=== PATIENT | female | born 1970 | race Caucasian/White ===

== ENCOUNTER 2018-05-07 13:59 | Inpatient (IN) | payer MEDICAID ==
[~2018-05-07] VITALS: Ht 157.5 cm; Wt 77.8 kg
[~2018-05-07 13:59] MED LIST: CEPH500C; SULF-151; [UNRECOGNIZED DRUG - CODE]; [UNRECOGNIZED DRUG - CODE]
--- NOTE | 2018-05-07 16:51 | ERD ---
ER Documentation Chief Complaint Chief Complaint Left lower back pain since yesterday; noted blood in urine HPI The patient is a 48-year-old female, presenting to the ER because of left low back pain, radiating to her left flank, bloody urine that began last night, denies similar symptoms previously, denies fever, chills, neck pain, chest pain, dyspnea, complains of frequent urination and constipation. She does not smoke nor drink Past medical history: Diabetes mellitus, history of kidney stones Past surgical history: Cholecystectomy ROS All systems reviewed and are negative except as per history of present illness. Medications Home Meds Reported Medications Metformin Hcl* (Metformin Hcl*) 1,000 Mg Tablet, 1000 MG PO WITH BREAKFAST DINNE, #60 TAB 05/07/18 Discontinued Reported Medications Bacitracin* (Bacitracin* Opht) 3.5 Gm Oint 06/15/09 Oxycodone Hcl/Acetaminophen (Roxicet 5-325 Tablet) 1 Tab Tablet 06/15/09 Sulfamethoxazole/Trimethoprim (Sulfamethoxazole Tmp Ds Tab) 1 Tab Tablet 06/15/09 Cephalexin* (Cephalexin*) 500 Mg Capsule 06/15/09 [None] No Conflict Check 06/12/09 Allergies Allergies: Coded Allergies: No Known Allergies (Verified Allergy, Mild, 05/07/18) PMhx/Soc History of Surgery: No Hx Neurological Disorder: No Hx Respiratory Disorders: No Hx Cardiac Disorders: No Hx Miscellaneous Medical Probl: No Hx Alcohol Use: No Hx Substance Use: No Hx Tobacco Use: No Physical Exam Vitals Vital Signs Date Temp Pulse Resp B/P (MAP) Pulse Ox O2 O2 Flow FiO2 Time Delivery Rate 05/07/18 98.4 85 20 139/77 96 Room Air 17:45 (97) 05/07/18 99.0 91 20 164/89 96 14:04 (114) Physical Exam Const: No acute distress. Head: Atraumatic. Eyes: Normal Conjunctiva. ENT: Normal External Ears, Nose and Mouth. Neck: Full range of motion. No meningismus. Resp: Clear to auscultation bilaterally. Cardio: Regular rate and rhythm. Abd: Soft, non distended, normal bowel sounds, mild left lower back and left flank/LUQ tenderness, no rigidity/rebound/ RLQ/RUQ tenderness Skin: No petechiae or rashes. Back: No midline or flank tenderness. Ext: No cyanosis, or edema. Neur: Awake and alert. No focal deficit Psych: Normal Mood and Affect. Result Diagram: 05/07/18 1719 05/07/18 1719 Results 24 hrs Laboratory Tests Test 05/07/18 17:18 05/07/18 17:19 05/07/18 17:26 POC Beta HCG, Qualitative NEGATIVE White Blood Count 11.8 10^3/ul Red Blood Count 4.82 10^6/ul Hemoglobin 13.5 g/dl Hematocrit 40.6 % Mean Corpuscular Volume 84.2 fl Mean Corpuscular Hemoglobin 28.0 pg Mean Corpuscular 33.3 g/dl Hemoglobin Concent Red Cell Distribution Width 13.0 % Platelet Count 362 10^3/UL Mean Platelet Volume 8.5 fl Immature Granulocytes % 0.300 % Neutrophils % 61.7 % Lymphocytes % 24.7 % Monocytes % 8.8 % Eosinophils % 3.9 % Basophils % 0.6 % Nucleated Red Blood Cells % 0.0 /100WBC Immature Granulocytes # 0.030 10^3/ul Neutrophils # 7.3 10^3/ul Lymphocytes # 2.9 10^3/ul Monocytes # 1.0 10^3/ul Eosinophils # 0.5 10^3/ul Basophils # 0.1 10^3/ul Nucleated Red Blood Cells # 0.0 10^3/ul Sodium Level 136 mmol/L Potassium Level 4.2 mmol/L Chloride Level 98 mmol/L Carbon Dioxide Level 27 mmol/L Anion Gap 11 Blood Urea Nitrogen 19 mg/dl Creatinine 0.87 mg/dl Est Glomerular Filtrat Rate mL/min > 60 mL/min Glucose Level 86 mg/dl Calcium Level 10.2 mg/dl Total Bilirubin 0.3 mg/dl Direct Bilirubin 0.00 mg/dl Indirect Bilirubin 0.3 mg/dl Aspartate Amino Transf (AST/SGOT) 58 IU/L Alanine 72 IU/L Aminotransferase (ALT/SGPT) Alkaline Phosphatase 191 IU/L Total Protein 8.3 g/dl Albumin 4.1 g/dl Globulin 4.20 g/dl Albumin/Globulin Ratio 0.97 Lipase 1254 U/L Bedside Urine pH (LAB) 6.5 Bedside Urine Protein (LAB) Trace Bedside Urine Glucose (UA) Negative Bedside Urine Ketones (LAB) Trace Bedside Urine Blood 3+ Bedside Urine Nitrite (LAB) Negative Bedside Urine Leukocyte Esterase Trace (L Current Medications Medications Dose Sig/Kareem Start Time Status Last (Trade) Ordered Route PRN Stop Time Admin Dose Reason Admin Ketorolac 30 mg ONCE STAT 05/07/18 DC 05/07/18 Tromethamine IV 16:58 17:43 (Toradol) 05/07/18 16:59 Procedures/MDM [place] [id number] Radiology Main Line: [phone] DIAGNOSTIC IMAGING REPORT Patient: JOCE ALVAREZ : 1970 Age: 48 Sex: F MR #: [id number] DOS: 05/07/18 1652 Ordering MD: RASHEEDA HARRY MD Location: E/R Room/Bed: PROCEDURE: CT Abdomen and Pelvis without contrast. CLINICAL INDICATION: Abdominal pain. TECHNIQUE: CT scan of the abdomen and pelvis was performed on a multi-detector high-resolution CT scanner. The patient was scanned without contrast administration. Coronal and sagittal reformatted images were obtained from the axial source images. Images were reviewed on a high-resolution PACS workstation. The total exam CTDI equals 15 mGy and the total exam DLP equals 910 mGy-cm. DICOM images are available. 3-D reconstructions were not performed. One or more of the following dose reduction techniques were utilized: 1.) Automated exposure control 2.) Adjustment of the mA +/- kV according to patient's size 3.) Use of iterative reconstruction technique. COMPARISON: None. FINDINGS: CT abdomen: Heart (where visible): Unremarkable. Lung bases: No evidence of pneumonia, mass, pleural effusion. Liver: Normal attenuation. No visible focal mass. Biliary ductal system: No evidence of significant dilatation. Gallbladder: Surgically absent. Pancreas: Unremarkable. Stomach: No identifiable focal mass or gross wall thickening. Spleen: No gross splenomegaly. Abdominal colon: Normal in caliber and course. Abdominal small bowel: Normal in caliber, course, and mucosal pattern. Adrenal glands: No visible masses. Right Kidney: Normal in size and contour without focal mass or collecting system dilatation. No visible calcifications. Left kidney: Slight collecting system fullness. Slight marginal blurring. No visible calcifications. Abdominal aorta: Normal caliber. Lymph nodes: No significantly enlarged nodes. CT pelvis: Pelvic colon: Normal in caliber and course. Scattered diverticula. No evidence of inflammatory change. Pelvic small bowel: Normal in caliber and course. Appendix: Identified. No evidence of inflammation. Urinary bladder: Nearly empty. 3 mm calculus in the left posterior bladder, possibly at the orifice of the left ureter.. Reproductive structures: Unremarkable. Bony structures included in the scan: No clinically significant abnormalities. IMPRESSION: 1. 3 mm calculus in the left posterior bladder, possibly at the orifice of the left ureter with partial obstruction of the distal left ureter. Left pyelon ephritis should be considered in the differential. 2. Surgical absence of the gallbladder. 3. Sigmoid diverticulosis without evidence of diverticulitis. RPTAT:AAJJ Physician Lenore Date Time Electronically viewed and signed by Physician Lenore on 05/07/2018 18:10 GW/ CC: RASHEEDA HARRY MD [phone] Consultation: The on-call urologist Dr. Andrews was notified via [facility] MAKING DECISION: The patient is a 48-year-old female, presenting with ac billie left ureterolithiasis, acute pancreatitis. She was treated with Toradol 30 IV for pain with good response The differential diagnoses considered include but are not limited to cholelithiasis, cholecystitis, choledocholithiasis, cholangitis, pancreatitis, hepatitis, gastritis, peptic ulcer disease, gastric ulcer, appendicitis, cystitis, diverticulitis, partial small bowel obstruction. Departure Diagnosis: Primary Impression: Ureterolithiasis Additional Impression: Pancreatitis Condition: Stable Comments I discussed the findings with the patient. I discussed the patient with the hospitalist at 7:15 pm who was made aware of the lab, the treatment, the patien t condition. The patient is admitted to [facility] Disclaimer: Inadvertent spelling and grammatical errors are likely due to EHR/dictation software use and do not reflect on the overall quality of patient care. Also, please note that the electronic time recorded on this note does not necessarily reflect the actual time of the patient encounter. RASHEEDA HARRY MD May 07, 2018 16:51
[2018-05-07] MEDS ORDERED: KETOROLAC 30 MG INJ IV STA (16:58)
[2018-05-07] MEDS ORDERED: METF100010 PO (18:10)
[2018-05-07] MEDS ORDERED: HYDROmorphONE 0.5 MG/0.5 ML SYG IV STA (19:34)
[2018-05-07] MEDS ORDERED: GLIP10TA14 PO (20:44)
[2018-05-07] MEDS ORDERED: LISI-313 PO (20:45)
[2018-05-07] MEDS ORDERED: CHOL100062 PO (20:45)
[2018-05-07] MEDS ORDERED: ASPI81TA50 PO (20:45)
[2018-05-07] MEDS ORDERED: CETI10TA19 PO (20:46)
--- NOTE | 2018-05-07 23:59 | HP ---
Date/Time of Note Date/Time of Note DATE: 05/07/18 TIME: 23:59 Assessment/Plan VTE Prophylaxis Pharmacological prophylaxis: heparin Lines/Catheters IV Catheter Type (from Nrsg): Saline Lock Assessment/Plan Assessment/Plan 1. Left flank pain, likely secondary to a ureterolithiasis and pyelonephritis -IV fluid, IV antibiotic -Flomax -Follow-up culture results -Urology consult as needed 2. Left ureteral calculus with partial obstruction -See #1 3. Elevated lipase, possibly from gallstone pancreatitis -CT abdomen/pelvis shows that patient status post cholecystectomy -Abdominal ultrasound followed by MRCP -GI consult as needed Result Diagram: 05/07/18 1719 05/07/18 1719 Results 24hrs Laboratory Tests Test 05/07/18 17:18 05/07/18 17:19 05/07/18 17:26 POC Beta HCG, Qualitative NEGATIVE White Blood Count 11.8 H Red Blood Count 4.82 Hemoglobin 13.5 Hematocrit 40.6 Mean Corpuscular Volume 84.2 Mean Corpuscular Hemoglobin 28.0 L Mean Corpuscular Hemoglobin Concent 33.3 Red Cell Distribution Width 13.0 Platelet Count 362 Mean Platelet Volume 8.5 Immature Granulocytes % 0.300 Neutrophils % 61.7 Lymphocytes % 24.7 Monocytes % 8.8 Eosinophils % 3.9 Basophils % 0.6 Nucleated Red Blood Cells % 0.0 Immature Granulocytes # 0.030 Neutrophils # 7.3 Lymphocytes # 2.9 Monocytes # 1.0 H Eosinophils # 0.5 Basophils # 0.1 Nucleated Red Blood Cells # 0.0 Sodium Level 136 Potassium Level 4.2 Chloride Level 98 Carbon Dioxide Level 27 Anion Gap 11 Blood Urea Nitrogen 19 Creatinine 0.87 Est Glomerular Filtrat Rate mL/min > 60 Glucose Level 86 Calcium Level 10.2 Total Bilirubin 0.3 Direct Bilirubin 0.00 Indirect Bilirubin 0.3 Aspartate Amino Transf (AST/SGOT) 58 H Alanine Aminotransferase (ALT/SGPT) 72 H Alkaline Phosphatase 191 H Total Protein 8.3 H Albumin 4.1 Globulin 4.20 H Albumin/Globulin Ratio 0.97 Lipase 1254 H Bedside Urine pH (LAB) 6.5 Bedside Urine Protein (LAB) Trace H Bedside Urine Glucose (UA) Negative Bedside Urine Ketones (LAB) Trace H Bedside Urine Blood 3+ H Bedside Urine Nitrite (LAB) Negative Bedside Urine Leukocyte Esterase (L Trace H HPI/ROS Admit Date/Time Admit Date/Time Hx of Present Illness This is a 48-year-old female who presents the ER complaining of left flank pain x 1 day. Also reported nausea. Denied fever/chills, chest pain or shortness of breath. In ER, vitals were stable except initial BP was 164/89. WBC almost 12,000, AST 58, ALT 72, alk phos 192, lipase 450. CT abdomen/pelvis shows the followin. 3 mm calculus in the left posterior bladder, possibly at the orifice of the left ureter with partial obstruction of the distal left ureter. Left pyelonephritis should be considered in the differential. 2. Surgical absence of the gallbladder. 3. Sigmoid diverticulosis without evidence of diverticulitis. . PMH/Family/Social Past Medical History Past Surgical History Past Surgical Hx: other (see hpi) Family History Significant Family History: no pertinent family hx Social History Alcohol Use: other Smoking Status: Unknown if ever smoked Drug Use: other Exam Constitutional: other (no acute distress) Eyes: PERRL ENMT: nl external ears & nose Neck: supple Respiratory: normal air movement Cardiovascular: nl pulses Gastrointestinal: soft Extremities: normal pulses Coded Allergies: No Known Allergies (Verified Allergy, Mild, 05/07/18) Social History Smoking Status: Never smoker Exam/Review of Systems Vital Signs Vitals Vital Signs Date Temp Pulse Resp B/P (MAP) Pulse Ox O2 O2 Flow FiO2 Time Delivery Rate 05/07/18 98.4 89 20 120/72 97 Room Air 23:23 (88) 97 MELLISA GAGE MD May 07, 2018 23:59
[2018-05-08 00:01] VITALS: BP 114/57; PULSE 75; RESP 18
[2018-05-08] MEDS ORDERED: POTASSIUM CHLORIDE (SR) 20 MEQ TAB PO ONE (00:29)
[2018-05-08] MEDS ORDERED: TAMSULOSIN (SR) 0.4 MG CAP PO ONE (00:30)
[2018-05-08] MEDS ORDERED: ALBUTEROL/IPRATROPIUM (NEB) 3 ML AMP HHN PRN (00:30)
[2018-05-08] MEDS ORDERED: CEFTRIAXONE 1 GM/50 ML (PMX) 50 ML IVPB ONE (00:30)
[2018-05-08] MEDS ORDERED: HYDROCODONE/APAP (5/325) TAB PO PRN (00:30)
[2018-05-08] MEDS ORDERED: NACL 0.9% 3 ML SYG IV SCH (00:30)
[2018-05-08] MEDS ORDERED: ACETAMINOPHEN 325 MG TAB PO PRN (00:30)
[2018-05-08 00:34] VITALS: Ht 157.5 cm; Wt 77.8 kg
[2018-05-08] MEDS: ONDANSETRON 4 MG INJ IV PRN ×2 (00:58→17:36)
[2018-05-08] MEDS ORDERED: GLUCAGON 1 MG INJ IM PRN (01:00)
[2018-05-08] MEDS ORDERED: GLUCOSE GEL 15 GRAM TUBE PO PRN ×2 (01:00)
[2018-05-08] MEDS ORDERED: DEXTROSE 50% 50 ML SYRINGE IV PRN ×2 (01:00)
[2018-05-08] MEDS ORDERED: GLUCOSE GEL 15 GRAM TUBE BUCCAL PRN (01:00)
[2018-05-08] MEDS: SOD CHLORIDE 0.9% 1,000 ML IV SCH ×3 (01:15→20:45)
[2018-05-08] MEDS: ACCU-CHEK XX SCH (02:23)
[2018-05-08 07:52] VITALS: BP 97/56; PULSE 78; RESP 18
[2018-05-08] MEDS: INSULIN ASPART [NOVOLOG] 3 ML PEN SC SCH ×4 (08:00→20:49)
--- NOTE | 2018-05-08 08:51 | CONS ---
Assessment/Plan Assessment/Plan Hospital Course (Demo Recall) 48-year-old female to the emergency room with left flank pain associated with nausea and vomiting. She underwent a CT scan of the abdomen and pelvis and that showed a 3 mm stone at the left ureterovesical junction. Patient had pain late last night and also was nauseated. 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 The stone is about 3 mm and its at the ureterovesical junction she should be able to pass it on her own. Plan: Strain the urine, give her pain medications, KUB, continue the antibiotic and tamsulosin. Consultation Date/Type/Reason Admit Date/Time May 07, 2018 Date of Consultation: May 08, 2018 Type of Consult Urology Reason for Consultation Distal left ureteral stone Requesting Provider: MELLISA GAGE MD Date/Time of Note DATE: 05/08/18 TIME: 08:44 Hx of Present Illness 48-year-old female to the emergency room with left flank pain associated with nausea and vomiting. She underwent a CT scan of the abdomen and pelvis and that showed a 3 mm stone at the left ureterovesical junction. Constitutional: no complaints Eyes: no complaints ENT: no complaints Respiratory: no complaints; No shortness of breath Cardiovascular: no complaints Gastrointestinal: nausea, vomiting (On admission) Genitourinary: flank pain (Left side); No dysuria Musculoskeletal: no complaints Skin: no complaints Neurologic: no complaints Endocrine: no complaints Psychological: no complaints Past Medical History Medical History: diabetes, hypertension Home Meds Reported Medications Cetirizine Hcl* (Cetirizine Hcl*) 10 Mg Tablet, 10 MG PO DAILY, #30 TAB 05/07/18 Aspirin (Aspir-Low) 81 Mg Tablet.dr, 81 MG PO DAILY 05/07/18 Cholecalciferol* (Vitamin D3*) 1,000 Unit Tablet, 1000 UNIT PO DAILY, TAB 05/07/18 Lisinopril* (Lisinopril*) 5 Mg Tablet, 5 MG PO DAILY, #30 TAB 05/07/18 Glipizide* (Glipizide*) 10 Mg Tablet, 10 MG PO AC BREAKFAST DINNER, TAB 05/07/18 Metformin Hcl* (Metformin Hcl*) 1,000 Mg Tablet, 1000 MG PO WITH BREAKFAST DINNE, #60 TAB 05/07/18 Discontinued Reported Medications Bacitracin* (Bacitracin* Opht) 3.5 Gm Oint 06/15/09 Oxycodone Hcl/Acetaminophen (Roxicet 5-325 Tablet) 1 Tab Tablet 06/15/09 Sulfamethoxazole/Trimethoprim (Sulfamethoxazole Tmp Ds Tab) 1 Tab Tablet 06/15/09 Cephalexin* (Cephalexin*) 500 Mg Capsule 06/15/09 [None] No Conflict Check 06/12/09 Medications Current Medications Sodium Chloride 1,000 ml @ 100 mls/hr Q10H IV Last administered on 05/08/18at 01:15; Admin Dose 100 MLS/HR; Start 05/08/18 at 00:18 IV Flush (NS 3 ml) 3 ml PER PROTOCOL IV ; Start 05/08/18 at 00:30 Ondansetron HCl (Zofran Inj) 4 mg Q6H PRN IV NAUSEA/VOMITING Last administered on 05/08/18at 00:58; Admin Dose 4 MG; Start 05/08/18 at 00:30 Acetaminophen (Tylenol Tab) 650 mg Q6H PRN PO .PAIN 1-3 OR TEMP; Start 05/08/18 at 00:30 Acetaminophen/ Hydrocodone Bitart ([place] (5/325)) 1 tab Q6H PRN PO .MOD PAIN 4- 6; Start 05/08/18 at 00:30 Acetaminophen/ Hydrocodone Bitart ([place] (5/325)) 2 tab Q6H PRN PO .SEVERE PAIN 7-10; Start 05/08/18 at 00:30 Heparin Sodium (Porcine) (Heparin (5000 Units/1ml)) 5,000 unit Q12 SC ; Start 05/08/18 at 09:00 Albuterol/ Ipratropium (Duoneb) 3 ml Q2H RESP THERAPY PRN HHN SHORTNESS OF BREATH; Start 05/08/18 at 00:30 Diagnostic Test (Pha) (Accu-Chek) 1 ea 02 XX Last administered on 05/08/18at 02:23; Admin Dose 1 EA; Start 05/08/18 at 02:00 Insulin Aspart (Novolog Insulin Pen) NOVOLOG *MILD* ALGORITHM WITH MEALS BEDTIME SC ; Start 05/08/18 at 08:00 Aspirin (Halfprin) 81 mg DAILY PO ; Start 05/08/18 at 09:00 Lisinopril (Zestril) 5 mg DAILY PO ; Start 05/08/18 at 09:00 Ceftriaxone Sodium 50 ml @ 100 mls/hr DAILY IVPB ; Start 05/08/18 at 09:00 Miscellaneous Information 1 ea NOTE XX ; Start 05/08/18 at 01:00 Glucose (Glutose) 15 gm Q15M PRN PO DECREASED GLUCOSE; Start 05/08/18 at 01:00 Glucose (Glutose) 22.5 gm Q15M PRN PO DECREASED GLUCOSE; Start 05/08/18 at 01:00 Dextrose (D50w Syringe) 25 ml Q15M PRN IV DECREASED GLUCOSE; Start 05/08/18 at 01:00 Dextrose (D50w Syringe) 50 ml Q15M PRN IV DECREASED GLUCOSE; Start 05/08/18 at 01:00 Glucagon (Glucagen) 1 mg Q15M PRN IM DECREASED GLUCOSE; Start 05/08/18 at 01:00 Glucose (Glutose) 15 gm Q15M PRN BUCCAL DECREASED GLUCOSE; Start 05/08/18 at 01:00 Allergies: Coded Allergies: No Known Allergies (Verified Allergy, Mild, 05/07/18) Past Surgical History Past Surgical Hx: cholecystectomy Social History Alcohol Use: none Smoking Status: Never smoker Other Social History 4 para 4, 4 normal deliveries Exam/Review of Systems Exam Vitals Vital Signs Date Temp Pulse Resp B/P (MAP) Pulse Ox O2 O2 Flow FiO2 Time Delivery Rate 05/08/18 98.0 78 18 97/56 (70) 99 Room Air 07:52 Intake and Output 05/07/18 05/07/18 05/08/18 1515:00 23:00 07:00 IntakeIntake Total 900 ml OutputOutput Total 400 ml BalanceBalance 500 ml Constitutional: alert, oriented Psych: no complaints Head: normocephalic Eyes: nl conjunctiva ENMT: nl external ears & nose Neck: supple, non-tender Respiratory: normal air movement; No wheezing Cardiovascular: No jugular venous distention (JVD) Gastrointestinal: soft Genitourinary - Female: CVA tenderness (Left side) Musculoskeletal: nl extremities to inspection Extremities: No calf tenderness Neurological: nl mental status Skin: nl turgor Lymph: nl lymph nodes Results Result Diagram: 05/08/18 0432 05/08/18 0432 Results 24hrs Laboratory Tests Test 05/07/18 17:18 05/07/18 17:19 05/07/18 17:26 05/08/18 02:22 POC Beta HCG, NEGATIVE Qualitative White Blood Count 11.8 H Red Blood Count 4.82 Hemoglobin 13.5 Hematocrit 40.6 Mean Corpuscular 84.2 Volume Mean Corpuscular 28.0 L Hemoglobin Mean Corpuscular 33.3 Hemoglobin Concent Red Cell 13.0 Distribution Width Platelet Count 362 Mean Platelet Volume 8.5 Immature 0.300 Granulocytes % Neutrophils % 61.7 Lymphocytes % 24.7 Monocytes % 8.8 Eosinophils % 3.9 Basophils % 0.6 Nucleated Red Blood 0.0 Cells % Immature 0.030 Granulocytes # Neutrophils # 7.3 Lymphocytes # 2.9 Monocytes # 1.0 H Eosinophils # 0.5 Basophils # 0.1 Nucleated Red Blood 0.0 Cells # Sodium Level 136 Potassium Level 4.2 Chloride Level 98 Carbon Dioxide Level 27 Anion Gap 11 Blood Urea Nitrogen 19 Creatinine 0.87 Est Glomerular > 60 Filtrat Rate mL/min Glucose Level 86 Calcium Level 10.2 Total Bilirubin 0.3 Direct Bilirubin 0.00 Indirect Bilirubin 0.3 Aspartate Amino 58 H Transf (AST/SGOT) Alanine 72 H Aminotransferase (AL T/SGPT) Alkaline Phosphatase 191 H Total Protein 8.3 H Albumin 4.1 Globulin 4.20 H Albumin/Globulin 0.97 Ratio Lipase 1254 H Bedside Urine pH 6.5 (LAB) Bedside Urine Trace H Protein (LAB) Bedside Urine Negative Glucose (UA) Bedside Urine Trace H Ketones (LAB) Bedside Urine Blood 3+ H Bedside Urine Negative Nitrite (LAB) Bedside Urine Trace H Leukocyte Esterase (L Bedside Glucose 172 Test 05/08/18 04:32 White Blood Count 10.1 Red Blood Count 4.63 Hemoglobin 13.1 Hematocrit 38.9 Mean Corpuscular 84.0 Volume Mean Corpuscular 28.3 L Hemoglobin Mean Corpuscular 33.7 Hemoglobin Concent Red Cell 12.8 Distribution Width Platelet Count 364 Mean Platelet Volume 9.0 Immature 0.400 Granulocytes % Neutrophils % 69.8 Lymphocytes % 22.5 Monocytes % 5.6 Eosinophils % 1.1 Basophils % 0.6 Nucleated Red Blood 0.0 Cells % Immature 0.040 H Granulocytes # Neutrophils # 7.1 Lymphocytes # 2.3 Monocytes # 0.6 Eosinophils # 0.1 Basophils # 0.1 Nucleated Red Blood 0.0 Cells # Sodium Level 135 Potassium Level 4.7 Chloride Level 99 Carbon Dioxide Level 25 Anion Gap 11 Blood Urea Nitrogen 21 H Creatinine 0.84 Est Glomerular > 60 Filtrat Rate mL/min Glucose Level 164 Hemoglobin A1c 9.4 H Calcium Level 9.6 Magnesium Level 1.8 Total Bilirubin 0.4 Direct Bilirubin 0.00 Indirect Bilirubin 0.4 Aspartate Amino 46 Transf (AST/SGOT) Alanine 65 Aminotransferase (AL T/SGPT) Alkaline Phosphatase 171 H Total Protein 7.5 Albumin 3.8 Globulin 3.70 H Albumin/Globulin 1.[address] scan of the abdomen and pelvis: 1. 3 mm calculus in the left posterior bladder, possibly at the orifice of the left ureter with partial obstruction of the distal left ureter. Left pyelonephritis should be considered in the differential. 2. Surgical absence of the gallbladder. 3. Sigmoid diverticulosis without evidence of diverticulitis. Medications Medication Current Medications Sodium Chloride 1,000 ml @ 100 mls/hr Q10H IV Last administered on 05/08/18at 01:15; Admin Dose 100 MLS/HR; Start 05/08/18 at 00:18 IV Flush (NS 3 ml) 3 ml PER PROTOCOL IV ; Start 05/08/18 at 00:30 Ondansetron HCl (Zofran Inj) 4 mg Q6H PRN IV NAUSEA/VOMITING Last administered on 05/08/18at 00:58; Admin Dose 4 MG; Start 05/08/18 at 00:30 Acetaminophen (Tylenol Tab) 650 mg Q6H PRN PO .PAIN 1-3 OR TEMP; Start 05/08/18 at 00:30 Acetaminophen/ Hydrocodone Bitart ([place] (5/325)) 1 tab Q6H PRN PO .MOD PAIN 4- 6; Start 05/08/18 at 00:30 Acetaminophen/ Hydrocodone Bitart ([place] (5/325)) 2 tab Q6H PRN PO .SEVERE PAIN 7-10; Start 05/08/18 at 00:30 Heparin Sodium (Porcine) (Heparin (5000 Units/1ml)) 5,000 unit Q12 SC ; Start 05/08/18 at 09:00 Albuterol/ Ipratropium (Duoneb) 3 ml Q2H RESP THERAPY PRN HHN SHORTNESS OF BREATH; Start 05/08/18 at 00:30 Diagnostic Test (Pha) (Accu-Chek) 1 ea 02 XX Last administered on 05/08/18at 02:23; Admin Dose 1 EA; Start 05/08/18 at 02:00 Insulin Aspart (Novolog Insulin Pen) NOVOLOG *MILD* ALGORITHM WITH MEALS BEDTIME SC ; Start 05/08/18 at 08:00 Aspirin (Halfprin) 81 mg DAILY PO ; Start 05/08/18 at 09:00 Lisinopril (Zestril) 5 mg DAILY PO ; Start 05/08/18 at 09:00 Ceftriaxone Sodium 50 ml @ 100 mls/hr DAILY IVPB ; Start 05/08/18 at 09:00 Miscellaneous Information 1 ea NOTE XX ; Start 05/08/18 at 01:00 Glucose (Glutose) 15 gm Q15M PRN PO DECREASED GLUCOSE; Start 05/08/18 at 01:00 Glucose (Glutose) 22.5 gm Q15M PRN PO DECREASED GLUCOSE; Start 05/08/18 at 01:00 Dextrose (D50w Syringe) 25 ml Q15M PRN IV DECREASED GLUCOSE; Start 05/08/18 at 01:00 Dextrose (D50w Syringe) 50 ml Q15M PRN IV DECREASED GLUCOSE; Start 05/08/18 at 01:00 Glucagon (Glucagen) 1 mg Q15M PRN IM DECREASED GLUCOSE; Start 05/08/18 at 01:00 Glucose (Glutose) 15 gm Q15M PRN BUCCAL DECREASED GLUCOSE; Start 05/08/18 at 01:00 JAVIER ROMERO MD May 08, 2018 08:51
[2018-05-08] MEDS: CEFTRIAXONE 1 GM/50 ML (PMX) 50 ML IVPB SCH (08:54)
[2018-05-08] MEDS: ASPIRIN (EC) 81 MG TAB PO SCH (08:54)
[2018-05-08] MEDS: HEPARIN 5,000 UNIT/1 ML VIAL SC SCH ×2 (08:55→20:51)
[2018-05-08] MEDS: LISINOPRIL 5 MG TAB PO SCH (08:55)
[2018-05-08] MEDS: TAMSULOSIN (SR) 0.4 MG CAP PO SCH ×2 (09:52→20:47)
[2018-05-08] MEDS: HYDROCODONE/APAP (5/325) TAB PO PRN ×2 (12:44→17:37)
--- NOTE | 2018-05-08 13:56 | PN ---
Date/Time of Note Date/Time of Note DATE: 05/08/18 TIME: 13:52 Assessment/Plan VTE Prophylaxis Risk score (from Nsg)>0 risk: 1 SCD applied (from Nsg): Yes Pharmacological prophylaxis: heparin Lines/Catheters IV Catheter Type (from Nrsg): Peripheral IV Urinary Cath still in place: No Assessment/Plan Assessment/Plan 1. Left ureteral calculus, on IVF/flomax and pain control, strain the urine 2. Elevated lipase, likely due to ureteral stone, unlikely pancreatitis 3. DVT prophylaxis: heparin Result Diagram: 05/08/18 0432 05/08/18 0432 Results 24hrs Laboratory Tests Test 05/07/18 17:18 05/07/18 17:19 05/07/18 17:26 05/08/18 02:22 POC Beta HCG, NEGATIVE Qualitative White Blood Count 11.8 H Red Blood Count 4.82 Hemoglobin 13.5 Hematocrit 40.6 Mean Corpuscular 84.2 Volume Mean Corpuscular 28.0 L Hemoglobin Mean Corpuscular 33.3 Hemoglobin Concent Red Cell 13.0 Distribution Width Platelet Count 362 Mean Platelet Volume 8.5 Immature 0.300 Granulocytes % Neutrophils % 61.7 Lymphocytes % 24.7 Monocytes % 8.8 Eosinophils % 3.9 Basophils % 0.6 Nucleated Red Blood 0.0 Cells % Immature 0.030 Granulocytes # Neutrophils # 7.3 Lymphocytes # 2.9 Monocytes # 1.0 H Eosinophils # 0.5 Basophils # 0.1 Nucleated Red Blood 0.0 Cells # Sodium Level 136 Potassium Level 4.2 Chloride Level 98 Carbon Dioxide Level 27 Anion Gap 11 Blood Urea Nitrogen 19 Creatinine 0.87 Est Glomerular > 60 Filtrat Rate mL/min Glucose Level 86 Calcium Level 10.2 Total Bilirubin 0.3 Direct Bilirubin 0.00 Indirect Bilirubin 0.3 Aspartate Amino 58 H Transf (AST/SGOT) Alanine 72 H Aminotransferase (AL T/SGPT) Alkaline Phosphatase 191 H Total Protein 8.3 H Albumin 4.1 Globulin 4.20 H Albumin/Globulin 0.97 Ratio Lipase 1254 H Bedside Urine pH 6.5 (LAB) Bedside Urine Trace H Protein (LAB) Bedside Urine Negative Glucose (UA) Bedside Urine Trace H Ketones (LAB) Bedside Urine Blood 3+ H Bedside Urine Negative Nitrite (LAB) Bedside Urine Trace H Leukocyte Esterase (L Bedside Glucose 172 Test 05/08/18 04:32 05/08/18 08:52 05/08/18 12:46 White Blood Count 10.1 Red Blood Count 4.63 Hemoglobin 13.1 Hematocrit 38.9 Mean Corpuscular 84.0 Volume Mean Corpuscular 28.3 L Hemoglobin Mean Corpuscular 33.7 Hemoglobin Concent Red Cell 12.8 Distribution Width Platelet Count 364 Mean Platelet Volume 9.0 Immature 0.400 Granulocytes % Neutrophils % 69.8 Lymphocytes % 22.5 Monocytes % 5.6 Eosinophils % 1.1 Basophils % 0.6 Nucleated Red Blood 0.0 Cells % Immature 0.040 H Granulocytes # Neutrophils # 7.1 Lymphocytes # 2.3 Monocytes # 0.6 Eosinophils # 0.1 Basophils # 0.1 Nucleated Red Blood 0.0 Cells # Sodium Level 135 Potassium Level 4.7 Chloride Level 99 Carbon Dioxide Level 25 Anion Gap 11 Blood Urea Nitrogen 21 H Creatinine 0.84 Est Glomerular > 60 Filtrat Rate mL/min Glucose Level 164 Hemoglobin A1c 9.4 H Calcium Level 9.6 Magnesium Level 1.8 Total Bilirubin 0.4 Direct Bilirubin 0.00 Indirect Bilirubin 0.4 Aspartate Amino 46 Transf (AST/SGOT) Alanine 65 Aminotransferase (AL T/SGPT) Alkaline Phosphatase 171 H Total Protein 7.5 Albumin 3.8 Globulin 3.70 H Albumin/Globulin 1.02 Ratio Bedside Glucose 110 106 Subjective 24 Hr Interval Summary Free Text/Dictation left flank pain with some nausea Exam/Review of Systems Exam Vitals Vital Signs Date Temp Pulse Resp B/P (MAP) Pulse Ox O2 O2 Flow FiO2 Time Delivery Rate 05/08/18 98.0 78 18 97/56 (70) 99 Room Air 07:52 Intake and Output 05/07/18 05/07/18 05/08/18 1515:00 23:00 07:00 IntakeIntake Total 900 ml OutputOutput Total 400 ml BalanceBalance 500 ml Constitutional: alert, oriented, well developed, obese Psych: no complaints, nl mood/affect Head: normocephalic, atraumatic Eyes: nl conjunctiva, EOMI, nl lids ENMT: nl external ears & nose, nl lips & teeth, nl nasal mucosa & septum Neck: supple, non-tender Respiratory: clear to auscultation, normal air movement; No congested cough, No crackles/rales, No diminished breath sounds, No intercostal retraction, No labored breathing, No respirations, No tactile fremitus, No wheezing, No other Cardiovascular: regular rate and rhythm, nl pulses; No bruits, No diastolic murmur, No edema, No gallop, No irregular rhythm, No jugular venous distention (JVD), No murmurs/extra sounds, No rub, No systolic murmur, No S3, No S4, No other Gastrointestinal: soft, nl liver, spleen, non-tender; No ascites, No bowel sounds, No distended, No firm, No hepatomegaly, No mass, No rebound or guarding, No splenomegaly, No surgical scars, No tender, No other Musculoskeletal: nl extremities to inspection Extremities: normal pulses; No calf tenderness, No cyanosis, No clubbing, No edema, No pitting pedal edema, No palpable cord, No tenderness, No other 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, nl mental status, nl speech, nl strength Results Results 24hrs Laboratory Tests Test 05/07/18 17:18 05/07/18 17:19 05/07/18 17:26 05/08/18 02:22 POC Beta HCG, NEGATIVE Qualitative White Blood Count 11.8 H Red Blood Count 4.82 Hemoglobin 13.5 Hematocrit 40.6 Mean Corpuscular 84.2 Volume Mean Corpuscular 28.0 L Hemoglobin Mean Corpuscular 33.3 Hemoglobin Concent Red Cell 13.0 Distribution Width Platelet Count 362 Mean Platelet Volume 8.5 Immature 0.300 Granulocytes % Neutrophils % 61.7 Lymphocytes % 24.7 Monocytes % 8.8 Eosinophils % 3.9 Basophils % 0.6 Nucleated Red Blood 0.0 Cells % Immature 0.030 Granulocytes # Neutrophils # 7.3 Lymphocytes # 2.9 Monocytes # 1.0 H Eosinophils # 0.5 Basophils # 0.1 Nucleated Red Blood 0.0 Cells # Sodium Level 136 Potassium Level 4.2 Chloride Level 98 Carbon Dioxide Level 27 Anion Gap 11 Blood Urea Nitrogen 19 Creatinine 0.87 Est Glomerular > 60 Filtrat Rate mL/min Glucose Level 86 Calcium Level 10.2 Total Bilirubin 0.3 Direct Bilirubin 0.00 Indirect Bilirubin 0.3 Aspartate Amino 58 H Transf (AST/SGOT) Alanine 72 H Aminotransferase (AL T/SGPT) Alkaline Phosphatase 191 H Total Protein 8.3 H Albumin 4.1 Globulin 4.20 H Albumin/Globulin 0.97 Ratio Lipase 1254 H Bedside Urine pH 6.5 (LAB) Bedside Urine Trace H Protein (LAB) Bedside Urine Negative Glucose (UA) Bedside Urine Trace H Ketones (LAB) Bedside Urine Blood 3+ H Bedside Urine Negative Nitrite (LAB) Bedside Urine Trace H Leukocyte Esterase (L Bedside Glucose 172 Test 05/08/18 04:32 05/08/18 08:52 05/08/18 12:46 White Blood Count 10.1 Red Blood Count 4.63 Hemoglobin 13.1 Hematocrit 38.9 Mean Corpuscular 84.0 Volume Mean Corpuscular 28.3 L Hemoglobin Mean Corpuscular 33.7 Hemoglobin Concent Red Cell 12.8 Distribution Width Platelet Count 364 Mean Platelet Volume 9.0 Immature 0.400 Granulocytes % Neutrophils % 69.8 Lymphocytes % 22.5 Monocytes % 5.6 Eosinophils % 1.1 Basophils % 0.6 Nucleated Red Blood 0.0 Cells % Immature 0.040 H Granulocytes # Neutrophils # 7.1 Lymphocytes # 2.3 Monocytes # 0.6 Eosinophils # 0.1 Basophils # 0.1 Nucleated Red Blood 0.0 Cells # Sodium Level 135 Potassium Level 4.7 Chloride Level 99 Carbon Dioxide Level 25 Anion Gap 11 Blood Urea Nitrogen 21 H Creatinine 0.84 Est Glomerular > 60 Filtrat Rate mL/min Glucose Level 164 Hemoglobin A1c 9.4 H Calcium Level 9.6 Magnesium Level 1.8 Total Bilirubin 0.4 Direct Bilirubin 0.00 Indirect Bilirubin 0.4 Aspartate Amino 46 Transf (AST/SGOT) Alanine 65 Aminotransferase (AL T/SGPT) Alkaline Phosphatase 171 H Total Protein 7.5 Albumin 3.8 Globulin 3.70 H Albumin/Globulin 1.02 Ratio Bedside Glucose 110 106 Medications Medication Current Medications Sodium Chloride 1,000 ml @ 100 mls/hr Q10H IV Last administered on 05/08/18at 12:55; Admin Dose 100 MLS/HR; Start 05/08/18 at 00:18 IV Flush (NS 3 ml) 3 ml PER PROTOCOL IV ; Start 05/08/18 at 00:30 Ondansetron HCl (Zofran Inj) 4 mg Q6H PRN IV NAUSEA/VOMITING Last administered on 05/08/18at 00:58; Admin Dose 4 MG; Start 05/08/18 at 00:30 Acetaminophen (Tylenol Tab) 650 mg Q6H PRN PO .PAIN 1-3 OR TEMP; Start 05/08/18 at 00:30 Acetaminophen/ Hydrocodone Bitart ([place] (5/325)) 1 tab Q6H PRN PO .MOD PAIN 4- 6 Last administered on 05/08/18at 12:44; Admin Dose 1 TAB; Start 05/08/18 at 00:30 Acetaminophen/ Hydrocodone Bitart ([place] (5/325)) 2 tab Q6H PRN PO .SEVERE PAIN 7-10; Start 05/08/18 at 00:30 Heparin Sodium (Porcine) (Heparin (5000 Units/1ml)) 5,000 unit Q12 SC Last administered on 05/08/18at 08:55; Admin Dose 5,000 UNIT; Start 05/08/18 at 09:00 Albuterol/ Ipratropium (Duoneb) 3 ml Q2H RESP THERAPY PRN HHN SHORTNESS OF BREATH; Start 05/08/18 at 00:30 Diagnostic Test (Pha) (Accu-Chek) 1 ea 02 XX Last administered on 05/08/18at 02:23; Admin Dose 1 EA; Start 05/08/18 at 02:00 Insulin Aspart (Novolog Insulin Pen) NOVOLOG *MILD* ALGORITHM WITH MEALS BEDTIME SC ; Start 05/08/18 at 08:00 Aspirin (Halfprin) 81 mg DAILY PO Last administered on 05/08/18at 08:54; Admin Dose 81 MG; Start 05/08/18 at 09:00 Lisinopril (Zestril) 5 mg DAILY PO ; Start 05/08/18 at 09:00 Ceftriaxone Sodium 50 ml @ 100 mls/hr DAILY IVPB Last administered on 05/08/18at 08:54; Admin Dose 100 MLS/HR; Start 05/08/18 at 09:00 Miscellaneous Information 1 ea NOTE XX ; Start 05/08/18 at 01:00 Glucose (Glutose) 15 gm Q15M PRN PO DECREASED GLUCOSE; Start 05/08/18 at 01:00 Glucose (Glutose) 22.5 gm Q15M PRN PO DECREASED GLUCOSE; Start 05/08/18 at 01:00 Dextrose (D50w Syringe) 25 ml Q15M PRN IV DECREASED GLUCOSE; Start 05/08/18 at 01:00 Dextrose (D50w Syringe) 50 ml Q15M PRN IV DECREASED GLUCOSE; Start 05/08/18 at 01:00 Glucagon (Glucagen) 1 mg Q15M PRN IM DECREASED GLUCOSE; Start 05/08/18 at 01:00 Glucose (Glutose) 15 gm Q15M PRN BUCCAL DECREASED GLUCOSE; Start 05/08/18 at 01:00 Tamsulosin HCl (Flomax) 0.4 mg HS PO Last administered on 05/08/18at 09:52; Admin Dose 0.4 MG; Start 05/08/18 at 09:00 PARESH LOMBARDO MD May 08, 2018 13:56
[2018-05-08 15:41] VITALS: BP 104/64; PULSE 73; RESP 18
[2018-05-08 20:26] VITALS: BP 115/60; PULSE 71; RESP 20
[2018-05-09] MEDS: ACCU-CHEK XX SCH (01:22)
[2018-05-09 02:13] VITALS: BP 118/71; PULSE 71
[2018-05-09] MEDS: SOD CHLORIDE 0.9% 1,000 ML IV SCH ×2 (05:34→16:25)
[2018-05-09] MEDS: INSULIN ASPART [NOVOLOG] 3 ML PEN SC SCH ×4 (07:50→21:00)
--- NOTE | 2018-05-09 08:20 | CONS ---
Consult Date/Type/Reason Admit Date/Time May 07, 2018 at 19:40 Initial Consult Date 05/08/18 Type of Consultation: Urology Reason for Consultation Distal left ureteral stone Requesting Provider: MELLISA GAGE MD Date/Time of Note DATE: 05/09/18 TIME: 08:16 Subjective Patient complains of constipation. She did have pain at 9 PM last night. 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 She did strain her urine and one could see small blood clots in it but no stone. The stone is at the ureterovesical junction and it is a small and she should be able to pass it on her own. Results/Medications Result Diagram: 05/09/18 0440 05/09/18 0440 Results 24 hrs Laboratory Tests Test 05/08/18 08:52 05/08/18 12:46 05/08/18 17:56 05/08/18 20:49 Bedside Glucose 110 106 199 193 Test 05/09/18 01:22 05/09/18 04:40 Bedside Glucose 141 White Blood Count 9.1 Red Blood Count 4.36 Hemoglobin 12.4 Hematocrit 36.6 L Mean Corpuscular 83.9 Volume Mean Corpuscular 28.4 L Hemoglobin Mean Corpuscular 33.9 Hemoglobin Concent Red Cell 13.0 Distribution Width Platelet Count 334 Mean Platelet Volume 8.7 Immature 0.200 Granulocytes % Neutrophils % 60.6 Lymphocytes % 26.4 Monocytes % 9.0 Eosinophils % 3.2 Basophils % 0.6 Nucleated Red Blood 0.0 Cells % Immature 0.020 Granulocytes # Neutrophils # 5.5 Lymphocytes # 2.4 Monocytes # 0.8 Eosinophils # 0.3 Basophils # 0.1 Nucleated Red Blood 0.0 Cells # Sodium Level 135 Potassium Level 3.9 Chloride Level 102 Carbon Dioxide Level 25 Anion Gap 8 Blood Urea Nitrogen 18 Creatinine 0.87 Est Glomerular > 60 Filtrat Rate mL/min Glucose Level 139 Calcium Level 8.9 Phosphorus Level 4.3 Magnesium Level 1.9 Home Meds Reported Medications Cetirizine Hcl* (Cetirizine Hcl*) 10 Mg Tablet, 10 MG PO DAILY, #30 TAB 05/07/18 Aspirin (Aspir-Low) 81 Mg Tablet.dr, 81 MG PO DAILY 05/07/18 Cholecalciferol* (Vitamin D3*) 1,000 Unit Tablet, 1000 UNIT PO DAILY, TAB 05/07/18 Lisinopril* (Lisinopril*) 5 Mg Tablet, 5 MG PO DAILY, #30 TAB 05/07/18 Glipizide* (Glipizide*) 10 Mg Tablet, 10 MG PO AC BREAKFAST DINNER, TAB 05/07/18 Metformin Hcl* (Metformin Hcl*) 1,000 Mg Tablet, 1000 MG PO WITH BREAKFAST DINNE, #60 TAB 05/07/18 Discontinued Reported Medications Bacitracin* (Bacitracin* Opht) 3.5 Gm Oint 06/15/09 Oxycodone Hcl/Acetaminophen ([place]oxic[place] 5-325 Tablet) 1 Tab Tablet 06/15/09 Sulfamethoxazole/Trimethoprim (Sulfamethoxazole Tmp Ds Tab) 1 Tab Tablet 06/15/09 Cephalexin* (Cephalexin*) 500 Mg Capsule 06/15/09 [None] No Conflict Check 06/12/09 Medications Current Medications Sodium Chloride 1,000 ml @ 100 mls/hr Q10H IV Last administered on 05/09/18at 05:34; Admin Dose 100 MLS/HR; Start 05/08/18 at 00:18 IV Flush (NS 3 ml) 3 ml PER PROTOCOL IV ; Start 05/08/18 at 00:30 Ondansetron HCl (Zofran Inj) 4 mg Q6H PRN IV NAUSEA/VOMITING Last administered on 05/08/18at 17:36; Admin Dose 4 MG; Start 05/08/18 at 00:30 Acetaminophen (Tylenol Tab) 650 mg Q6H PRN PO .PAIN 1-3 OR TEMP Last adminis tered on 05/08/18at 16:10; Admin Dose 650 MG; Start 05/08/18 at 00:30 Acetaminophen/ Hydrocodone Bitart ([place] (5/325)) 1 tab Q6H PRN PO .MOD PAIN 4- 6 Last administered on 05/08/18at 17:37; Admin Dose 1 TAB; Start 05/08/18 at 00:30 Acetaminophen/ Hydrocodone Bitart ([place] (5/325)) 2 tab Q6H PRN PO .SEVERE PAIN 7-10 Last administered on 05/08/18at 23:35; Admin Dose 2 TAB; Start 05/08/18 at 00:30 Heparin Sodium (Porcine) (Heparin (5000 Units/1ml)) 5,000 unit Q12 SC Last administered on 05/08/18at 20:51; Admin Dose 5,000 UNIT; Start 05/08/18 at 09:00 Albuterol/ Ipratropium (Duoneb) 3 ml Q2H RESP THERAPY PRN HHN SHORTNESS OF BREATH; Start 05/08/18 at 00:30 Diagnostic Test (Pha) (Accu-Chek) 1 ea 02 XX Last administered on 05/09/18at 01:22; Admin Dose 1 EA; Start 05/08/18 at 02:00 Insulin Aspart (Novolog Insulin Pen) NOVOLOG *MILD* ALGORITHM WITH MEALS BEDTIME SC ; Start 05/08/18 at 08:00 Aspirin (Halfprin) 81 mg DAILY PO Last administered on 05/08/18at 08:54; Admin Dose 81 MG; Start 05/08/18 at 09:00 Lisinopril (Zestril) 5 mg DAILY PO ; Start 05/08/18 at 09:00 Ceftriaxone Sodium 50 ml @ 100 mls/hr DAILY IVPB Last administered on 05/08/18at 08:54; Admin Dose 100 MLS/HR; Start 05/08/18 at 09:00 Miscellaneous Information 1 ea NOTE XX ; Start 05/08/18 at 01:00 Glucose (Glutose) 15 gm Q15M PRN PO DECREASED GLUCOSE; Start 05/08/18 at 01:00 Glucose (Glutose) 22.5 gm Q15M PRN PO DECREASED GLUCOSE; Start 05/08/18 at 01:00 Dextrose (D50w Syringe) 25 ml Q15M PRN IV DECREASED GLUCOSE; Start 05/08/18 at 01:00 Dextrose (D50w Syringe) 50 ml Q15M PRN IV DECREASED GLUCOSE; Start 05/08/18 at 01:00 Glucagon (Glucagen) 1 mg Q15M PRN IM DECREASED GLUCOSE; Start 05/08/18 at 01:00 Glucose (Glutose) 15 gm Q15M PRN BUCCAL DECREASED GLUCOSE; Start 05/08/18 at 01:00 Tamsulosin HCl (Flomax) 0.4 mg HS PO Last administered on 05/08/18at 20:47; Admin Dose 0.4 MG; Start 05/08/18 at 09:00 Assessment/Plan Hospital Course (Demo Recall) 48-year-old female to the emergency room with left flank pain associated with nausea and vomiting. She underwent a CT scan of the abdomen and pelvis and that showed a 3 mm stone at the left ureterovesical junction. Patient had pain at 9 PM last night. There is no nausea or vomiting. She still however has tenderness in the left flank area. Her white count is normal and she is afebrile and the stone is small. Therefore she may be discharged home on oral pain medications and antibiotic . Continue the tamsulosin and have her strain her urine at home. We will give her milk of magnesia prior to discharge so she could have a bowel movement as she is constipated JAVIER ROMERO MD May 09, 2018 08:20
[2018-05-09] MEDS: CEFTRIAXONE 1 GM/50 ML (PMX) 50 ML IVPB SCH (08:23)
[2018-05-09] MEDS: ASPIRIN (EC) 81 MG TAB PO SCH (08:23)
[2018-05-09] MEDS ORDERED: MAGNESIUM HYDROXIDE 30ML CUP PO PRN (08:30)
[2018-05-09] MEDS: LISINOPRIL 5 MG TAB PO SCH (08:30)
[2018-05-09] MEDS: HEPARIN 5,000 UNIT/1 ML VIAL SC SCH ×2 (08:30→21:08)
[2018-05-09] MEDS ORDERED: MAGNESIUM HYDROXIDE 30ML CUP PO ONE (08:30)
[2018-05-09 08:34] VITALS: BP 129/71; PULSE 71; RESP 18
[2018-05-09 14:15] VITALS: BP 138/68; PULSE 87; RESP 18
--- NOTE | 2018-05-09 14:58 | PN ---
Date/Time of Note Date/Time of Note DATE: 05/09/18 TIME: 14:54 Assessment/Plan VTE Prophylaxis Risk score (from Nsg)>0 risk: 2 SCD applied (from Nsg): Yes Pharmacological prophylaxis: heparin Lines/Catheters IV Catheter Type (from Nrsg): Peripheral IV Urinary Cath still in place: No Assessment/Plan Assessment/Plan 1. Left ureteral calculus, on IVF/flomax and pain control, strain the urine 2. Elevated lipase, likely due to ureteral stone, no evidence of pancreatitis 3. DVT prophylaxis: heparin 4. Constipation, resolved Result Diagram: 05/09/1843905/09/18439 Results 24hrs Laboratory Tests Test 05/08/18 17:56 05/08/18 20:49 05/09/18 01:22 05/09/18 04:40 Bedside Glucose 199 193 141 White Blood Count 9.1 Red Blood Count 4.36 Hemoglobin 12.4 Hematocrit 36.6 L Mean Corpuscular 83.9 Volume Mean Corpuscular 28.4 L Hemoglobin Mean Corpuscular 33.9 Hemoglobin Concent Red Cell 13.0 Distribution Width Platelet Count 334 Mean Platelet Volume 8.7 Immature 0.200 Granulocytes % Neutrophils % 60.6 Lymphocytes % 26.4 Monocytes % 9.0 Eosinophils % 3.2 Basophils % 0.6 Nucleated Red Blood 0.0 Cells % Immature 0.020 Granulocytes # Neutrophils # 5.5 Lymphocytes # 2.4 Monocytes # 0.8 Eosinophils # 0.3 Basophils # 0.1 Nucleated Red Blood 0.0 Cells # Sodium Level 135 Potassium Level 3.9 Chloride Level 102 Carbon Dioxide Level 25 Anion Gap 8 Blood Urea Nitrogen 18 Creatinine 0.87 Est Glomerular > 60 Filtrat Rate mL/min Glucose Level 139 Calcium Level 8.9 Phosphorus Level 4.3 Magnesium Level 1.9 Test 05/09/18 08:22 05/09/18 12:39 Bedside Glucose 122 125 Subjective 24 Hr Interval Summary Free Text/Dictation one bowel movement mild left lower flank pain Exam/Review of Systems Exam Vitals Vital Signs Date Temp Pulse Resp B/P (MAP) Pulse Ox O2 O2 Flow FiO2 Time Delivery Rate 05/09/18 98.0 87 18 138/68 90 Room Air 14:15 (91) Intake and Output 05/08/18 05/08/18 05/09/18 1515:00 23:00 07:00 IntakeIntake Total 650 ml 2040 ml 1740 ml OutputOutput Total 1000 ml 700 ml BalanceBalance -350 ml 2040 ml 1040 ml Constitutional: alert, oriented, well developed Psych: no complaints, nl mood/affect Head: normocephalic, atraumatic Eyes: nl conjunctiva, EOMI, nl lids, PERRL ENMT: nl external ears & nose, nl lips & teeth, nl nasal mucosa & septum Neck: supple, non-tender Respiratory: clear to auscultation, normal air movement; No congested cough, No crackles/rales, No diminished breath sounds, No intercostal retraction, No labored breathing, No respirations, No tactile fremitus, No wheezing, No other Cardiovascular: regular rate and rhythm, nl pulses; No bruits, No diastolic murmur, No edema, No gallop, No irregular rhythm, No jugular venous distention (JVD), No murmurs/extra sounds, No rub, No systolic murmur, No S3, No S4, No other Gastrointestinal: soft, nl liver, spleen, non-tender Musculoskeletal: nl extremities to inspection, nl gait and stance; No joint tenderness, No muscle tone, No muscle weakness, No range of motion, No spine non-tender, No swelling, No other Extremities: normal pulses; No calf tenderness, No cyanosis, No clubbing, No edema, No pitting pedal edema, No palpable cord, No tenderness, No other 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, nl mental status, nl speech, nl strength Results Results 24hrs Laboratory Tests Test 05/08/18 17:56 05/08/18 20:49 05/09/18 01:22 05/09/18 04:40 Bedside Glucose 199 193 141 White Blood Count 9.1 Red Blood Count 4.36 Hemoglobin 12.4 Hematocrit 36.6 L Mean Corpuscular 83.9 Volume Mean Corpuscular 28.4 L Hemoglobin Mean Corpuscular 33.9 Hemoglobin Concent Red Cell 13.0 Distribution Width Platelet Count 334 Mean Platelet Volume 8.7 Immature 0.200 Granulocytes % Neutrophils % 60.6 Lymphocytes % 26.4 Monocytes % 9.0 Eosinophils % 3.2 Basophils % 0.6 Nucleated Red Blood 0.0 Cells % Immature 0.020 Granulocytes # Neutrophils # 5.5 Lymphocytes # 2.4 Monocytes # 0.8 Eosinophils # 0.3 Basophils # 0.1 Nucleated Red Blood 0.0 Cells # Sodium Level 135 Potassium Level 3.9 Chloride Level 102 Carbon Dioxide Level 25 Anion Gap 8 Blood Urea Nitrogen 18 Creatinine 0.87 Est Glomerular > 60 Filtrat Rate mL/min Glucose Level 139 Calcium Level 8.9 Phosphorus Level 4.3 Magnesium Level 1.9 Test 05/09/18 08:22 05/09/18 12:39 Bedside Glucose 122 125 Medications Medication Current Medications Sodium Chloride 1,000 ml @ 100 mls/hr Q10H IV Last administered on 05/09/18 05:34; Admin Dose 100 MLS/HR; Start 05/08/18 at 00:18 IV Flush (NS 3 ml) 3 ml PER PROTOCOL IV ; Start 05/08/18 at 00:30 Ondansetron HCl (Zofran Inj) 4 mg Q6H PRN IV NAUSEA/VOMITING Last administered on 05/08/18 17:36; Admin Dose 4 MG; Start 05/08/18 at 00:30 Acetaminophen (Tylenol Tab) 650 mg Q6H PRN PO .PAIN 1-3 OR TEMP Last a dministered on 05/08/18 16:10; Admin Dose 650 MG; Start 05/08/18 at 00:30 Acetaminophen/ Hydrocodone Bitart ([place] (5/325)) 1 tab Q6H PRN PO .MOD PAIN 4- 6 Last administered on 05/08/18 17:37; Admin Dose 1 TAB; Start 05/08/18 at 00:30 Acetaminophen/ Hydrocodone Bitart ([place] (5/325)) 2 tab Q6H PRN PO .SEVERE PAIN 7-10 Last administered on 05/08/18 23:35; Admin Dose 2 TAB; Start 05/08/18 at 00:30 Heparin Sodium (Porcine) (Heparin (5000 Units/1ml)) 5,000 unit Q12 SC Last administered on 05/09/18 08:30; Admin Dose 5,000 UNIT; Start 05/08/18 at 09:00 Albuterol/ Ipratropium (Duoneb) 3 ml Q2H RESP THERAPY PRN HHN SHORTNESS OF BREATH; Start 05/08/18 at 00:30 Diagnostic Test (Pha) (Accu-Chek) 1 ea 02 XX Last administered on 3/15/19at 01:22; Admin Dose 1 EA; Start 05/08/18 at 02:00 Insulin Aspart (Novolog Insulin Pen) NOVOLOG *MILD* ALGORITHM WITH MEALS BEDTIME SC ; Start 05/08/18 at 08:00 Aspirin (Halfprin) 81 mg DAILY PO Last administered on 05/09/18at 08:23; Admin Dose 81 MG; Start 05/08/18 at 09:00 Lisinopril (Zestril) 5 mg DAILY PO Last administered on 05/09/18at 08:30; Admin Dose 5 MG; Start 05/08/18 at 09:00 Ceftriaxone Sodium 50 ml @ 100 mls/hr DAILY IVPB Last administered on 05/09/18at 08:23; Admin Dose 100 MLS/HR; Start 05/08/18 at 09:00 Miscellaneous Information 1 ea NOTE XX ; Start 05/08/18 at 01:00 Glucose (Glutose) 15 gm Q15M PRN PO DECREASED GLUCOSE; Start 05/08/18 at 01:00 Glucose (Glutose) 22.5 gm Q15M PRN PO DECREASED GLUCOSE; Start 05/08/18 at 01:00 Dextrose (D50w Syringe) 25 ml Q15M PRN IV DECREASED GLUCOSE; Start 05/08/18 at 01:00 Dextrose (D50w Syringe) 50 ml Q15M PRN IV DECREASED GLUCOSE; Start 05/08/18 at 01:00 Glucagon (Glucagen) 1 mg Q15M PRN IM DECREASED GLUCOSE; Start 05/08/18 at 01:00 Glucose (Glutose) 15 gm Q15M PRN BUCCAL DECREASED GLUCOSE; Start 05/08/18 at 01:00 Tamsulosin HCl (Flomax) 0.4 mg HS PO Last administered on 05/08/18at 20:47; Admin Dose 0.4 MG; Start 05/08/18 at 09:00 Magnesium Hydroxide (Milk Of Mag) 30 ml DAILY PRN PO CONSTIPATION; Start 05/09/18 at 08:30 PARESH LOMBARDO MD May 09, 2018 14:58
[2018-05-09] MEDS ORDERED: BISACODYL (EC) 5 MG TAB PO ONE (15:00)
[2018-05-09 19:35] VITALS: BP 130/80; PULSE 71; RESP 20
[2018-05-09] MEDS: TAMSULOSIN (SR) 0.4 MG CAP PO SCH (21:04)
[2018-05-10] MEDS: ACCU-CHEK XX SCH (01:34)
[2018-05-10] MEDS: SOD CHLORIDE 0.9% 1,000 ML IV SCH (01:36)
[2018-05-10 02:58] VITALS: BP 112/61; PULSE 70; RESP 20
[2018-05-10 07:37] VITALS: BP 119/63; PULSE 68; RESP 18
[2018-05-10] MEDS: INSULIN ASPART [NOVOLOG] 3 ML PEN SC SCH ×2 (07:50→11:40)
[2018-05-10] MEDS: HEPARIN 5,000 UNIT/1 ML VIAL SC SCH (09:00)
[2018-05-10] MEDS: CEFTRIAXONE 1 GM/50 ML (PMX) 50 ML IVPB SCH (09:34)
[2018-05-10] MEDS: ASPIRIN (EC) 81 MG TAB PO SCH (09:34)
[2018-05-10] MEDS: LISINOPRIL 5 MG TAB PO SCH (09:34)
[2018-05-10 14:52] VITALS: BP 128/81; PULSE 77; RESP 17
--- NOTE | 2018-05-10 16:07 | PDOCDIS ---
Discharge Instructions CONDITION [id number] Patient Condition: [id number] Stable HOME CARE INSTRUCTIONS: [id number] Diet Instructions: [id number] Regular ACTIVITY: [id number] Activity Restrictions: [id number] Slowly Increase Activity Avoid heavy lifting FOLLOW UP/APPOINTMENTS Follow-up Plan appt Dr Price 1-2wk TYLER DO MD May 10, 2018 16:07
[2018-05-10] MEDS ORDERED: CEPH250S33 PO (16:10)
[2018-05-10] MEDS ORDERED: ACET325T33 PO (16:10)
[2018-05-10] MEDS ORDERED: HYDR-3601 PO (16:10)
[2018-05-10] MEDS ORDERED: CEPH-443 PO (16:10)
[2018-05-10] MEDS ORDERED: TAMS-14 PO (16:10)
[2018-05-10] MEDS ORDERED: SENN-120 PO (16:10)
--- NOTE | 2018-05-10 16:47 | DS ---
Date/Time of Note Date/Time of Note DATE: 05/10/18 TIME: 16:45 Discharge Summary Admission/Discharge Info Admit Date/Time May 07, 2018 at 19:40 Discharge Date/Time Patient Condition: Stable Consults Dr Price Procedures CAT scan abdomen pelvis IMPRESSION: 1. 3 mm calculus in the left posterior bladder, possibly at the orifice of the left ureter with partial obstruction of the distal left ureter. Left pyelonephritis should be considered in the differential. 2. Surgical absence of the gallbladder. 3. Sigmoid diverticulosis without evidence of diverticulitis. KUB x-ray 1. Nonvisualization of previously noted left distal ureteral stone secondary to small size and low-density. 2. Status post cholecystectomy. Hx of Present Illness 48-year-old female admitted with abdominal pain mainly back pain and dysuria. No fever nausea vomiting Hospital Course Hospitalist coverage/hospital course Admitted and evaluated for abdominal pain. Seen by urology. UVJ stone noted which is small in size. Plan at this time is conservative management. KUB improved. Symptoms much improved. Patient is stable and fit for discharge on conservative management: Pain management, Flomax, short course of antibiotics. She is instructed to stay hydrated and follow-up with urology. Nephrolithiasis Diverticulosis Cholecystectomy status Anemia Home Meds Active Scripts Cephalexin* (Keflex*) 500 Mg Capsule, 500 MG PO Q8 for 3 Days, #10 CAP Prov:TYLER DO MD 05/10/18 Cephalexin* (Cephalexin* Susp) 250 Mg/5 Ml Susp.recon, 250 MG PO Q8, #1 BOTTLE Prov:TYLER DO MD 05/10/18 Sennosides* (Senna Lax*) 8.6 Mg Tablet, 2 TAB PO DAILY for 7 Days, #20 TAB Prov:TYLER DO MD 05/10/18 Hydrocodone Bit-Acetaminophen (Hydrocodone Bit-APAP) 5-325MG Tablet, 1 TAB PO Q6H PRN for .MOD PAIN 4-6 for 5 Days, TAB Prov:TYLER DO MD 05/10/18 Acetaminophen* (Tylenol*) 325 Mg Tablet, 650 MG PO Q6H PRN for .PAIN 1-3 OR TEMP for 10 Days, TAB Prov:TYLER OD MD 05/10/18 Tamsulosin Hcl* (Flomax*) 0.4 Mg Cap.er.24h, 0.4 MG PO HS for 14 Days, #14 CAP Prov:TYLER DO MD 05/10/18 Reported Medications Cetirizine Hcl* (Cetirizine Hcl*) 10 Mg Tablet, 10 MG PO DAILY, #30 TAB 05/07/18 Aspirin (Aspir-Low) 81 Mg Tablet.dr, 81 MG PO DAILY 05/07/18 Cholecalciferol* (Vitamin D3*) 1,000 Unit Tablet, 1000 UNIT PO DAILY, TAB 05/07/18 Lisinopril* (Lisinopril*) 5 Mg Tablet, 5 MG PO DAILY, #30 TAB 05/07/18 Glipizide* (Glipizide*) 10 Mg Tablet, 10 MG PO AC BREAKFAST DINNER, TAB 05/07/18 Metformin Hcl* (Metformin Hcl*) 1,000 Mg Tablet, 1000 MG PO WITH BREAKFAST DINNE, #60 TAB 05/07/18 Discontinued Reported Medications Bacitracin* (Bacitracin* Opht) 3.5 Gm Oint 06/15/09 Oxycodone Hcl/Acetaminophen (Roxicet 5-325 Tablet) 1 Tab Tablet 06/15/09 Sulfamethoxazole/Trimethoprim (Sulfamethoxazole Tmp Ds Tab) 1 Tab Tablet 06/15/09 Cephalexin* (Cephalexin*) 500 Mg Capsule 06/15/09 [None] No Conflict Check 06/12/09 Follow-up Plan appt Dr Price 1-2wk Primary Care Provider Not On Staff Doctor Time spent on discharge: > 30 minutes Pending Labs Laboratory Tests Test 05/09/18 17:58 05/09/18 21:05 05/10/18 01:34 05/10/18 04:51 Bedside 159 145 116 Glucose mg/dL (70-220) mg/dL (70-220) mg/dL (70-220) Sodium Level 141 mmol/L (135-14 4) Potassium 4.1 Level mmol/L (3.5-5. 1) Chloride Level 106 mmol/L (97-110 ) Carbon Dioxide 27 Level mmol/L (21-31) Anion Gap 8 (5-13) Blood Urea 11 Nitrogen mg/dl (7-20) Creatinine 0.60 mg/dl (0.44-1. 00) Est Glomerular > 60 Filtrat mL/min (>60) Rate mL/min Glucose Level 105 mg/dl (70-220) Calcium Level 9.1 mg/dl (8.4-10. 2) Test 05/10/18 09:29 05/10/18 12:57 Bedside 105 125 Glucose mg/dL (70-220) mg/dL (70-220) TYLER DO MD May 10, 2018 16:47
== END 2018-05-10 17:37 | disposition home or self-care (01) | DRG 694 ==
LOC: E/R 13:59 → MS1 19:40
PROVIDERS: ADMIT Internal Medicine; ATTEND Internal Medicine
DX: N20.1 Calculus of ureter (principal); N12 Tubulo-interstitial nephritis, not specified as acute or chronic; D64.9 Anemia, unspecified; E11.9 Type 2 diabetes mellitus without complications; I10 Essential (primary) hypertension; K57.30 Diverticulosis of large intestine without perforation or abscess without bleeding; K59.00 Constipation, unspecified; N21.0 Calculus in bladder; Z90.49 Acquired absence of other specified parts of digestive tract; Z79.84 Long term (current) use of oral hypoglycemic drugs; Z79.82 Long term (current) use of aspirin
CPT/HCPCS: 74018; 74176; 80048; 80053; 81003; 81025; 82150; 82962; 83036; 83690; 83735; 84100; 85025; 96374; J0696; J1170; J1644; J1815; J1885; J2405; J7030